=== PATIENT | male | born 1985 | race Caucasian/White ===

== ENCOUNTER 2017-07-16 23:01 | Emergency (ER) | payer OTHER ==
[~2017-07-16] VITALS: Ht 190.5 cm; Wt 97.0 kg
[2017-07-16 23:10] VITALS: O2SAT 99; Ht 190.5 cm; Wt 97.0 kg
[2017-07-16] MEDS ORDERED: SODIUM CHLORIDE 0.9% 1000ML 1,000 ML IV STA (23:14)
--- NOTE | 2017-07-16 23:25 | EMERGENCY ROOM VISIT NOTE ---
History Report prepared by Deya: Starr Fuentes Under the Supervision of: Dr. Samir Sharif M.D. First contact with patient: 23:05 Chief Complaint: SYNCOPE Stated Complaint: SYNCOPE History of Present Illness The patient is a 31 year old male who presents to the Emergency Room via EMS with complaints of episode of syncope occurring just prior to arrival. The patient states he was trimming his cat's nails when started to feel nauseous and lightheaded. The patient tried sitting down and drinking water but then loss consciousness. He reports that he was sweating and his hands were shaking before he lost consciousness. He notes blurry vision but denies any headache, chest pain, shortness of breath, or hitting his head. Presently, the patient denies any abdominal pain. The patient notes another episode of syncope occurring a year ago which presented itself in a similar fashion. At that time, he had a full work-up and EKG which was unremarkable. The patient's blood sugar was 105 per EMS. He reports sick contact from his family who were recently sick with "head colds". The patient's maternal grandfather had a heart attack at 30 years old. The patient occasionally drinks alcohol but denies any tobacco use. He works out regularly but denies taking any supplements. He denies any recent travel. Source of History: patient Onset: just prior to arrival Position: other (global) Quality: other (syncope) Timing: other (episode) Associated Symptoms: + LOC, + nausea, No headache, No chest pain, No SOB, No abdominal pain Review of Systems See HPI for pertinent positives & negatives. A total of 10 systems reviewed and were otherwise negative. Past Medical & Surgical Medical Problems: (1) No Known Active Medical Problems Family History Heart attack Social History Smoking Status: Never Smoker Smokeless Tobacco Use: No Alcohol Use: occasionally Marital Status: Housing Status: lives with family Current/Historical Medications No Active Prescriptions or Reported Meds Allergies Coded Allergies: No Known Allergies (Unverified , 07/16/17) Physical Exam Vital Signs Date Time Temp Pulse Resp B/P (MAP) Pulse Ox O2 Delivery O2 Flow Rate FiO2 07/17/17 00:30 72 16 122/76 99 Room Air 07/17/17 00:00 66 16 123/74 98 Room Air 07/16/17 23:30 63 18 116/82 99 Room Air 07/16/17 23:10 79 15 153/97 99 Room Air 07/16/17 23:10 99 Room Air 07/16/17 23:09 77 Physical Exam GENERAL: Patient is mildly anxious appearing and in no acute distress. HEENT: No acute trauma, normocephalic atraumatic, mucous membranes moist, no nasal congestion, no scleral icterus. NECK: No stridor, no adenopathy, no meningismus, trachea is midline. LUNGS: No dyspnea. Clear to auscultation and equal bilaterally. No wheeze, no rhonchi. HEART: Regular rate and rhythm. No murmurs, rubs, gallops appreciated. ABDOMEN: Soft, nontender, bowel sounds positive, no masses appreciated, no peritonitis. BACK: No midline tenderness, no CVA tenderness EXTREMITIES: Normal motion all extremities, no cyanosis, no edema. NEUROLOGIC: Alert and oriented, no acute motor or sensory deficits, no focal weakness, cranial nerves grossly intact. SKIN: No rash, no jaundice, no diaphoresis. Medical Decision & Procedures ER Provider Diagnostic Interpretation: X ray results are stated below per my interpretation: Chest: 1 view: No infiltrate, no effusion, normal cardiac border. Laboratory Results 07/16/17 22:45 Red Blood Count 4.68, Mean Corpuscular Volume 87.6, Mean Corpuscular Hemoglobin 30.1, Mean Corpuscular Hemoglobin Concent 34.4, Mean Platelet Volume 10.7, Neutrophils (%) (Auto) 40.7, Lymphocytes (%) (Auto) 51.2, Monocytes (%) (Auto) 5.8, Eosinophils (%) (Auto) 1.6, Basophils (%) (Auto) 0.6, Neutrophils # (Auto) 3.31, Lymphocytes # (Auto) 4.16, Monocytes # (Auto) 0.47, Eosinophils # (Auto) 0.13, Basophils # (Auto) 0.05 07/16/17 22:45 Test 07/16/17 22:45 White Blood Count 8.13 K/uL (4.8-10.8) Red Blood Count 4.68 M/uL (4.7-6.1) Hemoglobin 14.1 g/dL (14.0-18.0) Hematocrit 41.0 % (42-52) Mean Corpuscular Volume 87.6 fL (80-100) Mean Corpuscular Hemoglobin 30.1 pg (25-34) Mean Corpuscular Hemoglobin Concent 34.4 g/dl (32-36) Platelet Count 151 K/uL (130-400) Mean Platelet Volume 10.7 fL (7.4-10.4) Neutrophils (%) (Auto) 40.7 % Lymphocytes (%) (Auto) 51.2 % Monocytes (%) (Auto) 5.8 % Eosinophils (%) (Auto) 1.6 % Basophils (%) (Auto) 0.6 % Neutrophils # (Auto) 3.31 K/uL (1.4-6.5) Lymphocytes # (Auto) 4.16 K/uL (1.2-3.4) Monocytes # (Auto) 0.47 K/uL (0.11-0.59) Eosinophils # (Auto) 0.13 K/uL (0-0.5) Basophils # (Auto) 0.05 K/uL (0-0.2) RDW Standard Deviation 40.6 fL (36.4-46.3) RDW Coefficient of Variation 12.7 % (11.5-14.5) Immature Granulocyte % (Auto) 0.1 % Immature Granulocyte # (Auto) 0.01 K/uL (0.00-0.02) D-Dimer 190 ug/L FEU (0-500) Anion Gap 5.0 mmol/L (3-11) Est Creatinine Clear Calc Drug Dose 136.5 ml/min Estimated GFR () 126.2 Estimated GFR (Non- 108.9 BUN/Creatinine Ratio 19.2 (10-20) Calcium Level 9.1 mg/dl (8.5-10.1) Total Creatine Kinase 89 U/L (39-308) Creatine Kinase MB < 0.5 ng/ml (0.5-3.6) Creatine Kinase MB Ratio (0-3.0) Troponin I < 0.015 ng/ml (0-0.045) Laboratory results as reviewed by me. Medications Administered Medications (Trade) Dose Ordered Sig/Kilo Route Start Time Stop Time Status Last Admin Dose Admin Sodium Chloride 1,000 ml @ 999 mls/hr Q1H1M STAT IV 07/16/17 23:14 07/17/17 00:14 DC 07/16/17 23:22 999 MLS/HR ECG Indication: syncope Rate (beats per minute): 66 Rhythm: normal sinus Findings: no acute ischemic change, no ectopy ED Course 2306: The patient was evaluated in room A3. A complete history and physical exam was performed. 2314: Ordered Sodium Chloride 1000 ml @ 999 mls/hr. 0007: The patient is feeling better and would like to go home. He will follow up with PCP this week. Repeat blood pressure was 120/80. 0011: Reevaluated the patient. Discussed results and discharge instructions: He verbalized understanding and agreement. The patient is ready for discharge. Medical Decision Differential: Vaso-vagal, Intracerebral Event, Neurologic, Infectious, Volume Deficiency, Hypoglycemia, Electrolyte Abnormality, Cardiac Source, Toxicologic, amongst other pathologies entertained. Pleasant 31 yr old male arrives following syncopal event. Symptoms consistent with vagal nature. Work-up benign with normal labs, EKG, cxr. Dimer negative and with low risk I do not feel this is PE. EKG unremarkable and symptoms not consistent with ACS. No evidence dissection. No neuro deficits nor headache and thus I feel brain imaging not indicated. Stable throughout ED stay. Given IV fluids as possible element dehydration. Advised PCP follow up for further discussion. Patient comfortable with plan and understands symptoms requiring RTED. Medication Reconcilliation Current Medication List: was personally reviewed by me Blood Pressure Screening Patient's blood pressure: Normal blood pressure Impression Primary Impression: Syncope Scribe Attestation The scribe's documentation has been prepared under my direction and personally reviewed by me in its entirety. I confirm that the note above accurately reflects all work, treatment, procedures, and medical decision making performed by me. Departure Information Dispostion Home / Self-Care Prescriptions No Active Prescriptions or Reported Meds Referrals Beverley Stevens M.D. (PCP) Forms HOME CARE DOCUMENTATION FORM, IMPORTANT VISIT INFORMATION Patient Instructions Fainting (Syncope) - [facility], My [facility]
[2017-07-16 23:31] LABS: MEAN CELL VOLUME 87.6 fL (80-100); MEAN CORPUSCULAR HEMOGLOBIN 30.1 pg (25-34); MEAN CORPUSCULAR HGB CONC 34.4 g/dl (32-36); MEAN PLATELET VOLUME 10.7 fL (7.4-10.4); PLATELET COUNT 151 K/uL (130-400); RED BLOOD COUNT 4.68 M/uL (4.7-6.1); WHITE BLOOD COUNT 8.13 K/uL (4.8-10.8)
[2017-07-16 23:45] LABS: BLOOD UREA NITROGEN 18 mg/dl (7-18); BUN/CREATININE RATIO 19.2 (10-20); CALCIUM 9.1 mg/dl (8.5-10.1); CARBON DIOXIDE 31 mmol/L (21-32); CHLORIDE 104 mmol/L (98-107); CREATININE 0.92 mg/dl (0.60-1.40); GLUCOSE 106 mg/dl (70-99); POTASSIUM 3.7 mmol/L (3.5-5.1); SODIUM 140 mmol/L (136-145)
[2017-07-17 00:14] LABS: BASO % 0.6 %; BASO ABS # 0.05 K/uL (0-0.2); COMPLETE YES; EOS % 1.6 %; IG% 0.1 %; LYMPH % 51.2 %; LYMPH ABS # 4.16 K/uL (1.2-3.4); MONO % 5.8 %; NEUT % 40.7 %
[2017-07-17 00:30] VITALS: BP 122/76; PULSE 72; O2SAT 99
--- NOTE | 2017-07-17 07:28 | DIAGNOSTIC IMAGING REPORT ---
CHEST ONE VIEW PORTABLE HISTORY: Syncope COMPARISON: None. FINDINGS: The lungs are clear. Cardiac silhouette is normal in size. No pleural effusions. No pneumothorax. IMPRESSION: No acute process. Electronically signed by: Robbie Castañeda M.D. 07/17/2017 7:26 AM Dictated Date/Time: 07/17/2017 7:25 AM
== END 2017-07-17 00:42 | disposition home or self-care (01) ==
LOC: EDBD 23:01 → C.EDA 23:04
DX: R55 Syncope and collapse (principal); Z82.49 Family history of ischemic heart disease and other diseases of the circulatory system